=== PATIENT | female | born 1945 | race Hispanic/Latino ===

== ENCOUNTER → 2019-10-09 | Outpatient (CLI) | payer OTHER | END | disposition home or self-care (01) | LOC: RAH 08:22 | PROVIDERS: ATTEND Family Medicine | DX: M50.221 Other cervical disc displacement at C4-C5 level (principal); M50.222 Other cervical disc displacement at C5-C6 level; M50.223 Other cervical disc displacement at C6-C7 level; M50.21 Other cervical disc displacement, high cervical region; M47.22 Other spondylosis with radiculopathy, cervical region | CPT/HCPCS: 72141 ==

== ENCOUNTER → 2020-09-01 | Outpatient (CLI) | payer OTHER | END | disposition home or self-care (01) | LOC: SHCH 14:40 | PROVIDERS: ATTEND Internal Medicine Cardiovascular Disease | DX: R09.89 Other specified symptoms and signs involving the circulatory and respiratory systems (principal) | CPT/HCPCS: 93880 ==

== ENCOUNTER → 2024-01-22 | Outpatient (CLI) | payer OTHER ==
[~2024-01-22] MED LIST: IOHEXOL-350 50ML VIAL IV ONE
--- NOTE | 2024-01-22 15:48 | HMCIMG ---
CT ORB/MARTHA/EAR W/WO CONTRAST REASON: UNSPEC MASTOIDITIS, RIGHT EAR COMPARISON: None TECHNIQUE: Axial images are obtained through the temporal bones before and after IV contrast. High-resolution imaging was performed at 1 mm sections intervals. Images are also obtained pre and post Omnipaque contrast, 50 cc Omnipaque 350. FINDINGS: The right temporal bone is sclerotic which can be evidence of chronic mastoiditis. The right mastoid is underpneumatized. The mastoid air cells which are present are fluid-filled. Middle ear is fluid-filled. Ossicular chain appears intact. The scutum appears to intact. There is no current evidence of cholesteatoma. Right inner ear appears unremarkable. External auditory canal appears patent. Left temporal bone appears normal. There is normal mastoid aeration. Hilar structures appear normal including the ossicles. External auditory canal appears normal as does the internal auditory canal. IMPRESSION: 1. 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 2. Normal findings on the left.
== END | disposition home or self-care (01) ==
LOC: RAH 13:41
PROVIDERS: ATTEND Family Medicine
DX: H70.11 Chronic mastoiditis, right ear (principal)
CPT/HCPCS: 70482; Q9967

== ENCOUNTER → 2024-02-01 | Outpatient (CLI) | payer OTHER | END | disposition home or self-care (01) | LOC: SHCH 13:13 | PROVIDERS: ATTEND Internal Medicine Cardiovascular Disease | DX: I65.23 Occlusion and stenosis of bilateral carotid arteries (principal) | CPT/HCPCS: 93880 ==